=== PATIENT | female | born 1975 | race Caucasian/White ===

== ENCOUNTER → 2021-04-15 | Day surgery (SDC) | payer OTHER ==
[~2021-04-15] VITALS: Ht 162.6 cm; Wt 94.8 kg
[~2021-04-15] MED LIST: NEURONTIN300 MG PO; NORCO 5-325 TA1 EACH PO; PROZAC20 MG PO; WELLBUTRIN SR100 MG PO; ZOCOR40 MG PO
[2021-04-15 09:53] LABS: HCT 43.8 % (37.0-47.0); HGB 14.4 g/dl (12.5-16.0); MCH 30.3 pg (25.0-31.0); MCHC 32.9 g/dL (32.0-36.0); MCV 92.2 fL (78.0-100.0); MPV 10.5 fL (6.0-9.5); RBC 4.75 M/uL (4.20-5.40); RDW 13.7 % (11.5-14.0); WBC 8.6 K/uL (4.0-10.5)
[2021-04-15 11:01] LABS: ALBUMIN 3.1 g/dL (3.4-5.0); BILIRUBIN - TOTAL 0.2 mg/dL (0.2-1.0); BUN/CREAT RATIO (CALC) 13.3 RATIO; CREATININE 0.75 mg/dL (0.51-0.95); GLOBULIN (CALCULATION) 3.8 g/dL; TOTAL PROTEIN 6.9 g/dL (6.4-8.2)
== END | disposition home or self-care (01) ==
LOC: FAS 07:34
PROVIDERS: Orthopaedic Surgery
DX: M75.52 Bursitis of left shoulder (principal); M25.812 Other specified joint disorders, left shoulder; M19.012 Primary osteoarthritis, left shoulder; M75.102 Unspecified rotator cuff tear or rupture of left shoulder, not specified as traumatic; M75.82 Other shoulder lesions, left shoulder; F31.9 Bipolar disorder, unspecified
CPT/HCPCS: 36415; 71045; 80053; 93005; J0171; J0735; J1100; J1885; J2250; J2405; J2704; J2795; J7120

== ENCOUNTER → 2021-07-02 | Day surgery (SDC) | payer OTHER ==
[~2021-07-02] VITALS: Ht 162.6 cm; Wt 94.8 kg
== END | disposition home or self-care (01) ==
LOC: FAS 07:41
DX: M75.02 Adhesive capsulitis of left shoulder (principal)
CPT/HCPCS: 97162; 97530-GP; J0171; J1040; J2250; J2704; J2795; J7120